=== PATIENT | male | born 1950 | race Caucasian/White ===

== ENCOUNTER 2017-09-21 23:11 | Observation (INO) ==
--- NOTE | 2017-09-21 23:26 | Emergency Department Note ---
Disposition Clinical Impression: Bronchitis Disposition: Admitted As Inpatient Condition: Good Referrals: NONE,PCP [Primary Care Provider] - Sarbjit Townsend [Family Provider] - Forms: ED Satisfaction Letter SOB HPI - General Chief Complaint: ED Upper Respiratory Infection Stated Complaint: cough, SOB Time Seen by Provider: 09/21/17 23:19 Source: patient Mode of arrival: private vehicle Limitations: no limitations Nursing Notes Reviewed: Yes Vital Signs Reviewed: Yes - History of Present Illness Patient presents to the ED with cough and shortness breath. States his cough has been mostly dry and has been going on for a few days. This evening he started feeling short of breath and started having some pain in his back between shoulder blades. He reports rhinorrhea, congestion, sneezing and sore throat for a few days as well. Reports subjective fever and chills. Denies any chest pain. No abdominal pain, nausea, vomiting, diarrhea or constipation. No rash. He has been taking aspirin, ibuprofen and NyQuil at home. His has had recent cold symptoms as well but is feeling better. No recent travel. He has a history of high blood pressure and arthritis but denies any history of lung disease. He is an ex-smoker. Arrival patient states he was so short of breath he could barely walk into the ED. Room air oxygen saturation was 88-91%. - Related Data Home Medications Medication Instructions Recorded Confirmed Dutasteride [Avodart] 0.5 mg PO DAILY 09/21/17 09/21/17 Escitalopram [Lexapro] 20 mg PO DAILY 09/21/17 09/21/17 HYDROcodone/Acet 5/325 mg [[place] 1 tab PO Q6H PRN 09/21/17 09/21/17 5-325 mg] Metoprolol Tartrate [Lopressor] 25 mg PO DAILY 09/21/17 09/21/17 Pravastatin Sodium [Pravachol] 40 mg PO QPM 09/21/17 09/21/17 Tamsulosin HCl [Flomax] 0.4 mg PO DAILY 09/21/17 09/21/17 Verapamil HCl [Verapamil ER] 240 mg PO DAILY 09/21/17 09/21/17 hydroCHLOROthiazide 25 mg PO DAILY 09/21/17 09/21/17 [Hydrochlorothiazide] Allergies Allergy/AdvReac Type Severity Reaction Status Date / Time No Known Allergies Allergy Verified 09/21/17 23:12 Constitutional: Reports: fever (subjective), chills. Denies: weakness, weight change Eyes: Denies: eye pain, eye discharge, vision change ENT ED: Denies: ear pain, throat pain, dental pain, hearing loss, epistaxis, congestion, dysphagia Cardiovascular: Denies: chest pain, palpitations, dyspnea on exertion, edema, syncope Respiratory: Reports: cough, dyspnea. Denies: wheezes, hemoptysis, stridor, sputum production Gastrointestinal: Denies: abdominal pain, nausea, vomiting, diarrhea, constipation, hematemesis, melena, hematochezia Genitourinary: Denies: urgency, dysuria, frequency, hematuria Musculoskeletal: Denies: back pain, neck pain, arthralgia, myalgia Integumentary: Denies: rash, abrasion, lesions Neurological: Denies: headache, weakness, numbness, paresthesias, confusion, abnormal gait, vertigo Psychiatric: Denies: anxiety, depression, suicidal thoughts, homicidal thoughts , auditory hallucinations, visual hallucinations Endocrine: Denies: fatigue Hematological/Lymphatic: Denies: easy bleeding, easy bruising Allergic/Immunologic: Denies: facial swelling, urticaria Past Medical History - Past Medical History Medical history: Reports: arthritis, hypertension Psychiatric history: Reports: no psych history - Social History Smoking Status: Current some day smoker Smokeless Tobacco Status: Yes Alcohol use: Reports: occasionally Drug use: Reports: marijuana Physical Exam - General Limitations: no limitations General appearance: alert, in no apparent distress - Head Head exam: atraumatic, normocephalic, normal inspection - Eye Eye exam: Present: normal appearance, PERRL, EOMI - ENT ENT exam: normal exam, normal oropharynx, mucous membranes moist - Neck Neck exam: Present: normal inspection, full ROM, trachea midline - Chest Chest inspection: Present: normal inspection, symmetric chest wall rise - Respiratory Respiratory exam: Absent: respiratory distress - Expanded Respiratory Exam Location: wheezes: Right, Lower, rhonchi: Left, Right, Upper, Lower (scattered) - Cardiovascular Cardiovascular exam: Present: regular rate, normal rhythm, normal heart sounds - Abdominal Exam Abdominal exam: Present: soft, Non-Tender, normal bowel sounds. Absent: tenderness, distention, guarding, rebound, rigidity - Extremities Exam Extremities exam: Present: normal inspection, full ROM. Absent: tenderness, pedal edema - Back Exam Back exam: Present: normal inspection, full ROM. Absent: tenderness - Neurological Exam Neurological exam: Present: alert, oriented X3 - Psychiatric Psychiatric exam: Present: normal affect, normal mood - Skin Skin exam: Present: warm, dry, intact, normal color Course Course Narrative: Patient presents to the ED with several days of cough one day of shortness of breath and pain in his upper back. On exam he does have scattered rhonchi and some wheezing in the right lower lobe concerning for pneumonia given his mild hypoxia and current symptoms. Will obtain chest x-ray and routine labs. We will give DuoNeb treatment. He has been placed on oxygen at 2 L with improvement in his saturations as well as subjective improvement in his dyspnea. He has no lower extremity swelling or heart problems. Low suspicion for CHF - Reevaluation(s) Reevaluation #1: Patient reports feeling better after neb treatment and rhonchi is now gone although he does still have some scattered wheezing at the bases. Oxygen saturation is 94% on 2 L. After being taken off oxygen he dropped down to 91%. Will perform walking pulse ox evaluation. Chest x-ray did not show any pneumonia. Laboratory studies show a mild leukocytosis but no other abnormalities. Time: 00:48 Reevaluation #2: Patient became dyspneic and desatted into the mid 80s after approximately 3 minutes of walking without oxygen. After resting O2 saturation improved to 91% . Given his mild hypoxia and persistent wheezing I feel the patient would benefit from admission for continued steroids, nebulizer treatments and antibiotics for what is likely bronchitis or possibly undiagnosed COPD with exacerbation. Patient is amenable to admission. I spoke to the hospitalist compensation consultant, Dr. Esparza, who has accepted the patient. Time: 01:06 Vital Signs Temperature 98.1 F 09/21/17 23:12 Pulse Rate 84 09/21/17 23:12 Respiratory Rate 24 09/21/17 23:12 Blood Pressure 122/59 09/21/17 23:12 O2 Sat by Pulse Oximetry 91 09/21/17 23:12 Temperature 98.1 F 09/21/17 23:12 Pulse Rate 87 09/22/17 00:01 Respiratory Rate 18 09/22/17 00:01 Blood Pressure 114/60 09/22/17 00:01 O2 Sat by Pulse Oximetry 95 09/22/17 00:01 Oxygen Delivery Oxygen Delivery Room Air Shortness of Breath/Dyspnea - Differential Diagnosis Likely: acute exacerbation of chronic obstructive airways disease, pneumonia - Medical Records Medical records reviewed: Yes I reviewed the patient's medical records. - Lab Data Lab results reviewed: Yes I reviewed the patient's lab results. Result diagrams: 09/21/17 23:57 09/21/17 00:00 Lab Results 09/21/17 09/21/17 09/21/17 Range/Units 00:00 00:00 23:57 WBC 13.3 H (4.3-11.1) K/mcL RBC 5.09 (4.19-5.50) M/mcL Hgb 16.0 (12.9-16.9) g/dL Hct 44.6 (37.5-50.1) % MCV 87.6 (83.0-100.0) fL MCH 31.4 (28.0-33.3) pg MCHC 35.9 H (31.6-35.5) g/dL RDW 12.4 (11.5-14.5) % Plt Count 233 (140-400) K/mcL MPV 10.6 (9.4-12.4) fL Immature Gran % 0.3 (0-4) % Seg Neutrophils % 71.9 % Lymphocytes % 17.3 % Monocytes % 7.8 % Eosinophils % 2.2 % Basophils % 0.5 % Neutrophils # 9.6 H (1.6-8.9) K/mcL Lymphocytes # 2.3 (0.6-4.6) K/mcL Monocytes # 1.0 (0.0-1.3) K/mcL Eosinophils # 0.3 (0.0-0.6) K/mcL Basophils # 0.1 (0.0-0.2) K/mcL Sodium 140 (136-145) mEq/L Potassium 4.0 (3.5-4.5) mEq/L Chloride 101 (98-109) mEq/L Carbon Dioxide 27 (19-29) mEq/L BUN 10 (8-26) mg/dL Creatinine 1.00 (0.72-1.25) mg/dL Est GFR ( Amer) > 60 (> 60) Est GFR (Non-Af Amer) > 60 (> 60) BUN/Creatinine Ratio 10 (6-26) Glucose 110 H (70-99) mg/dL Calculated Osmolality 290 (280-300) Lactic Acid 1.7 (0.5-2.2) mmol/L Calcium 9.8 (8.6-10.8) mg/dL - Radiology Data Radiology results reviewed: Yes I reviewed the patient's radiology results. ITS Impressions Chest X-Ray 09/21/17 23:33 IMPRESSION: Negative portable study. D/ / Lizbeth Hawthorne Cha, MD / Lizbeth Hawthorne Cha, MD Interpreting Provider: Lizbeth Hawthorne Cha, MD
[2017-09-21] MEDS ORDERED: Ipratropium/Albuterol Neb 3 ML IH ONE (23:34)
[2017-09-22 00:22] LABS: Basophils # 0.1 K/mcL (0.0-0.2); Basophils % 0.5 %; Eosinophils # 0.3 K/mcL (0.0-0.6); Eosinophils % 2.2 %; Hematocrit 44.6 % (37.5-50.1); Immature Granulocytes % 0.3 % (0-4); Lymphocytes # 2.3 K/mcL (0.6-4.6); Lymphocytes % 17.3 %; Mean Corpuscular HGB Conc 35.9 g/dL (31.6-35.5); Mean Corpuscular Hemoglobin 31.4 pg (28.0-33.3); Mean Corpuscular Volume 87.6 fL (83.0-100.0); Mean Platelet Volume 10.6 fL (9.4-12.4); Monocytes % 7.8 %; Neutrophils # 9.6 K/mcL (1.6-8.9); Platelet Count 233 K/mcL (140-400); Red Blood Count 5.09 M/mcL (4.19-5.50); Red Cell Distribution Width 12.4 % (11.5-14.5); Segmented Neutrophils % 71.9 %
[2017-09-22] MEDS ORDERED: methylPREDNISolone 125 MG/2 ML VIAL IVP ONE (01:03)
[2017-09-22] MEDS ORDERED: Doxycycline 100 MG CAPSULE PO ONE (01:04)
[2017-09-22] MEDS ORDERED: Naloxone 0.4 MG/ML INJ IVP PRN ×2 (01:08→01:35)
[2017-09-22] MEDS ORDERED: Ipratropium/Albuterol Neb 3 ML IH SCH (01:15)
[2017-09-22] MEDS ORDERED: *HR* HYDROcodone/Acet 5/325 mg TABLET PO PRN (01:35)
[2017-09-22] MEDS: Ipratropium/Albuterol Neb 3 ML IH SCH ×2 (04:45→08:55)
[2017-09-22] MEDS ORDERED: Ipratropium/Albuterol Neb 3 ML IH PRN (09:41)
--- NOTE | 2017-09-22 09:45 | Internal Med History&Physical ---
Date of Encounter: 09/22/17 Time of Encounter: 09:15 Assessment and Plan (1) Dyspnea Current visit: Yes Status: Acute Possibly multifactorial etiology. Will order bn peptide and check room air oximetry on 6 minute walk in a.m. Qualifiers: Dyspnea type: shortness of breath Qualified Code(s): R06.02 - Shortness of breath; R06.00 - Dyspnea, unspecified; R06.01 - Orthopnea (2) Hypertension Current visit: Yes Status: Chronic Continue HCTZ, verapamil, and Lopressor. Qualifiers: Hypertension type: essential hypertension Qualified Code(s): I10 - Essential (primary) hypertension Internal Medicine - H&P: HPI Chief complaint: Dyspnea Admitted From: Emergency Dept Plans for Post Hospital Care: Home History of present illness: Mr. Mcclain is a 66 year old male who came to emergency room complaining of increased dyspnea over the past 3 days. He had productive cough onset September 19. He had sore throat and rhinorrhea. He had worsening back pain and occasional diarrhea. He was evaluated in emergency room and diagnosed with acute bronchitis. He was admitted to [facility] floor for ongoing care needs. He states he feels improved at the present time. His respiratory history is significant for having smoked from age [age] up to 2-1/2 packs per day. He has not had PFTs and does not use home oxygen. He has not been tested for LANA. Past Med Surg Social Fam HX - Past Medical History Medical history: arthritis, hypertension Psychiatric history: no psych history - Social History Smoking Status: Former smoker Smokeless Tobacco Status: Yes Alcohol use: occasionally Drug use: marijuana Internal Medicine - H&P: Meds Dutasteride [Avodart] 0.5 mg PO DAILY 09/21/17 [History] Escitalopram [Lexapro] 20 mg PO DAILY 09/21/17 [History] HYDROcodone/Acet 5/325 mg [[place] 5-325 mg] 1 tab PO Q6H PRN 09/21/17 [History] Metoprolol Tartrate [Lopressor] 25 mg PO DAILY 09/21/17 [History] Pravastatin Sodium [Pravachol] 40 mg PO QPM 09/21/17 [History] Tamsulosin HCl [Flomax] 0.4 mg PO DAILY 09/21/17 [History] Verapamil HCl [Verapamil ER] 240 mg PO DAILY 09/21/17 [History] hydroCHLOROthiazide [Hydrochlorothiazide] 25 mg PO DAILY 09/21/17 [History] 3 Allergy/AdvReac Type Severity Reaction Status Date / Time No Known Allergies Allergy Verified 09/21/17 23:12 All Systems PM: A 10-system review of systems was performed and is negative for pertinent findings except as documented above in the HPI. Review of systems: Gen.: He states his weight is been stable the past few months Cardiovascular: He has history of hypertension and "tachycardia". He is uncertain if tachycardia is PSVT. He denies NH heart failure DVT or pulmonary embolus. He has had increasing dyspnea on exertion over the past few weeks. Respiratory: As per history of present illness GI: He denies disorders of his liver gallbladder or exocrine pancreas. He had segmental colon resection due to polyposis in 1994. His last colonoscopy was approximately 2013 and did not show recurrent polyps. : He has BPH but denies other kidney or bladder disorders Neurologic: He denies large distribution strokes or seizures Endocrine: He has hyperlipidemia but denies diabetes or thyroid disease Hematology/oncology: Denies blood disorders cancers or anemia Psychiatric: He has depression but denies anxiety other mental health issues [place] skeletal: He has DJD denies gout. 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 - Constitutional Vitals: Temp Pulse Resp BP Pulse Ox 98.1 F 88 18 156/76 95 09/22/17 01:48 09/22/17 01:48 09/22/17 04:45 09/22/17 01:48 09/22/17 04:45 Exam: Gen.: He is a well-developed well-nourished male resting comfortably in bed who appears in no severe distress at present time HEENT: Head is atraumatic and normocephalic. Eyes: EOMI. There is no scleral icterus. Mouth: Mucosa is moist. Neck: Supple and nontender. There is no thyromegaly or adenopathy noted. Heart: Regular without murmurs gallops or ectopics Lungs: No wheezes or crackles are heard. Abdomen: Soft and nontender. No masses or guarding are noted. Extremities: There is no cyanosis edema or clubbing noted. Dorsalis pedis and posterior tibial pulses are trace palpable bilaterally. Neurologic: Mental status: He is talkative and a good historian. Cranial nerves : Smile is symmetric. Forehead wrinkles bilaterally. Tongue protrudes midline. EOMI. Motor: There is no pronator drift. Cerebellar: Finger to nose is intact bilaterally. Skin: Warm and dry. He has multiple tattoos Internal Med - H&P Results - Labs CBC & Chem 7: 09/21/17 23:57 09/21/17 00:00 - VTE Reasons for not Prescribing Prophylaxis: Treatment not Indicated - Low risk for VTE
[2017-09-22] MEDS: hydroCHLOROthiazide 25 MG TABLET PO SCH (11:07)
[2017-09-22] MEDS: Verapamil ER (24 HR) 240 MG TABLET.ER PO SCH (11:07)
[2017-09-22] MEDS: Finasteride 5 MG TABLET PO SCH (11:08)
[2017-09-22] MEDS: *HR* HYDROcodone/Acet 7.5/325 mg TABLET PO PRN ×2 (11:12→17:48)
[2017-09-23] MEDS: *HR* HYDROcodone/Acet 7.5/325 mg TABLET PO PRN ×2 (01:29→09:13)
[2017-09-23 05:05] LABS: Basophils % 0.1 %; Hematocrit 42.5 % (37.5-50.1); Immature Granulocytes % 1.1 % (0-4); Lymphocytes # 2.1 K/mcL (0.6-4.6); Lymphocytes % 10.8 %; Mean Corpuscular HGB Conc 35.3 g/dL (31.6-35.5); Mean Corpuscular Hemoglobin 30.7 pg (28.0-33.3); Mean Corpuscular Volume 87.1 fL (83.0-100.0); Mean Platelet Volume 10.4 fL (9.4-12.4); Monocytes # 1.2 K/mcL (0.0-1.3); Neutrophils # 16.1 K/mcL (1.6-8.9); Platelet Count 271 K/mcL (140-400); Red Blood Count 4.88 M/mcL (4.19-5.50); Red Cell Distribution Width 12.5 % (11.5-14.5)
[2017-09-23] MEDS: hydroCHLOROthiazide 25 MG TABLET PO SCH (09:03)
[2017-09-23] MEDS: Finasteride 5 MG TABLET PO SCH (09:03)
--- NOTE | 2017-09-23 09:23 | Discharge Summary ---
Date of Encounter: 09/23/17 Time of Encounter: 09:10 - Discharge Diagnosis (1) Dyspnea Priority: Primary Status: Acute Qualifiers: Dyspnea type: shortness of breath Qualified Code(s): R06.02 - Shortness of breath; R06.00 - Dyspnea, unspecified; R06.01 - Orthopnea (2) Hypertension Priority: Secondary Status: Chronic Qualifiers: Hypertension type: essential hypertension Qualified Code(s): I10 - Essential (primary) hypertension - Discharge Medications Home Medications: Dutasteride [Avodart] 0.5 mg PO DAILY 09/21/17 [History] Escitalopram [Lexapro] 20 mg PO DAILY 09/21/17 [History] HYDROcodone/Acet 5/325 mg [[place] 5-325 mg] 1 tab PO Q6H PRN 09/21/17 [History] Metoprolol Tartrate [Lopressor] 25 mg PO DAILY 09/21/17 [History] Pravastatin Sodium [Pravachol] 40 mg PO QPM 09/21/17 [History] Tamsulosin HCl [Flomax] 0.4 mg PO DAILY 09/21/17 [History] Verapamil HCl [Verapamil ER] 240 mg PO DAILY 09/21/17 [History] hydroCHLOROthiazide [Hydrochlorothiazide] 25 mg PO DAILY 09/21/17 [History] Allergies/Adverse Reactions: 3 Allergy/AdvReac Type Severity Reaction Status Date / Time No Known Allergies Allergy Verified 09/21/17 23:12 Procedures/tests Complete & Pending: Procedures Performed prior 72 hours Category Date Time Status ECG 12 lead ECG [ECG] Routine Y 09/22/17 09:55 Ordered Date of admission: 09/22/17 01:20 Primary care physician: Tammy Wilson M.D. - Patient Status Disposition: Home, Self-Care Condition: Good Overall status at discharge: patient is progressing back to baseline - Discharge Instructions Follow Up With: Tammy Wilson MD [Non-Partnered Physician] - 1 week Hospital course: Mr. Mcclain is a 66 year old male who came to emergency room complaining of increased dyspnea over the past 3 days. He had productive cough onset September 19. He had sore throat and rhinorrhea. He had worsening back pain and occasional diarrhea. He was evaluated in emergency room and diagnosed with acute bronchitis. He was admitted to [facility] for ongoing care needs. Initial orders were written by the emergency room physician. I saw him on September 22 and performed a history and physical. Bn peptide returned satisfactory at 51. Magnesium level was normal at 2.1. TSH returned minimally suppressed at 0.322. His dyspnea had improved when I saw him on September 23. Follow-up CBC showed WBC elevated at 19.6 on the day of discharge with 82% segs. I felt he likely had viral bronchitis and will not give antibiotics at this time. He felt stable for discharge which I felt was reasonable. Room air oximetry was satisfactory on a 6 minute walk. He will follow with his PCP Dr. Tammy Wilson within 1 week. - Time Spent with Patient Total time spent providing and/or coordinating discharge services: - Constitutional Vitals: Temp Pulse Resp BP Pulse Ox 97.5 F L 88 22 126/59 94 09/23/17 08:55 09/23/17 08:58 09/23/17 08:55 09/23/17 08:58 09/23/17 08:55 - VTE Reasons for not Prescribing Prophylaxis: Treatment not Indicated - Low risk for VTE
[2017-09-23 09:38] VITALS: BP 122/67
[2017-09-23] MEDS: Verapamil ER (24 HR) 240 MG TABLET.ER PO SCH (09:38)
--- NOTE | 2017-09-25 09:40 | Electrocardiograph Report ---
[place] [id number] Test Date: 2017-09-22 Pat Name: Jluis Mcclain Department: [id number] Room: [facility] Gender: M Administrative Clerk: [id number] : 1950 Requested By: Tae Esparza Order Number: [id number] Reading MD: Sonu You DO Measurements Intervals [place] Rate: 76 P: 66 [place]: 247 QRS: 65 QRSD: 88 T: 63 QT: 393 QTc: 423 Interpretive Statements SINUS RHYTHM WITH FIRST DEGREE AV BLOCK NONSPECIFIC T-WAVE ABNORMALITY Electronically Signed On 09-25-2017 9:38:35 EST by Sonu You DO
== END 2017-09-23 09:50 | disposition home or self-care (01) ==
LOC: INPPIK 23:11 → EMEROOPIK 23:11 → INPPIK 09-22 01:30
PROVIDERS: ADMIT Internal Medicine; ATTEND Internal Medicine